=== PATIENT | female | born 1970 | race Two or more races ===

== ENCOUNTER 2023-04-15 19:27 | Emergency (ER) | payer OTHER ==
[~2023-04-15] VITALS: Ht 170.2 cm; Wt 62.3 kg
[2023-04-15] MEDS ORDERED: SODIUM CHLORIDE 0.9% 500 ML IV ONE (19:45)
[2023-04-15 21:06] LABS: Basophils # (auto) 0 10 ^3/uL (0-0.2); Eosinophils # (auto) 0 10 ^3/uL (0-0.8); Hemoglobin 8.6 g/dL (12.2-16.2); Lymphocytes # (auto) 0 10 ^3/uL (0.4-5.4); Monocytes # (auto) 0 10 ^3/uL (0-1.3); Neutrophils # (auto) 0 10 ^3/uL (1.6-8.6); Red Blood Cells 2.71 10^6/uL (4.0-5.20)
[2023-04-15 21:08] LABS: Eosinophils % (auto) 6.5 % (0.0-7.0); Hematocrit 25.4 % (36.0-46.0); Lymphocytes % (auto) 46.2 % (10.0-50.0); Mean Corpuscular Hemoglobin 31.6 pg (28.0-32.0); Mean Corpuscular Hgb Conc. 33.7 g/dL (32.0-36.0); Mean Corpuscular Volume 93.7 fL (80.0-100.0); Neutrophils % (auto) 23.3 % (37.0-80.0); Nucleated Red Blood Cells % 2.7 %; Red Cell Distribution Width 15.1 % (11.8-14.3)
[2023-04-15 21:25] LABS: Calcium 8.5 mg/dL (8.5-10.1); White Blood Cell 0.1 10^3/uL (4.4-10.8)
[2023-04-15 21:28] LABS: BUN/Creatinine Ratio 23.2 (10.0-20.0); Bilirubin, Total 0.5 mg/dL (0.2-1.0); Total Protein 5.6 g/dL (6.4-8.2)
[2023-04-15] MEDS ORDERED: POTASSIUM CHL 20 Meq TABLET PO ONE (21:45)
[2023-04-15] MEDS ORDERED: levoFLOXacin 500MG 100 ML IV ONE (21:45)
[2023-04-16 00:50] VITALS: PULSE 92; RESP 18; O2SAT 96
[2023-04-16 05:05] VITALS: BP 104/47; PULSE 87; RESP 16; TEMP 98.3; O2SAT 100
== END 2023-04-15 23:05 | disposition short-term general hospital (02) ==
LOC: ER 19:27 → EDBD 19:27 → ER 23:05
DX: R55 Syncope and collapse (principal); R05.9 Cough, unspecified; Z90.49 Acquired absence of other specified parts of digestive tract; Z90.710 Acquired absence of both cervix and uterus; Z98.890 Other specified postprocedural states; Z20.822 Contact with and (suspected) exposure to COVID-19
CPT/HCPCS: 36415; 70450; 71045; 80053; 83605; 84484; 85025; 87040; 87426; 93005; 96361; 96365; 99285; J1956; J7040